=== PATIENT | female | born 1965 | race Two or more races ===

== ENCOUNTER 2023-01-12 08:49 | Emergency (ER) | payer OTHER ==
[~2023-01-12] VITALS: Ht 162.6 cm; Wt 89.4 kg
[2023-01-12] MEDS ORDERED: HYDRODIURIL12.5 MG PO (09:03)
[2023-01-12] MEDS ORDERED: AVALIDE 300-121 EACH PO (09:03)
[2023-01-12] MEDS ORDERED: NORFLEX100MG PO (09:04)
[2023-01-12] MEDS ORDERED: TORADOL60 MG IM (09:05)
[2023-01-12] MEDS ORDERED: MEDROLPACK PO (13:05)
[2023-01-12] MEDS ORDERED: CELEBREX200MG PO (13:05)
[2023-01-12] MEDS ORDERED: DIAZEPAM2 MG PO (13:05)
[2023-01-12] MEDS ORDERED: METAXALONE800 MG PO (13:05)
== END 2023-01-12 13:12 | disposition home or self-care (01) ==
LOC: ER 08:49
DX: M62.838 Other muscle spasm (principal); I10 Essential (primary) hypertension; Z88.0 Allergy status to penicillin

== ENCOUNTER 2025-08-31 22:43 | Inpatient (IN) | payer OTHER ==
[~2025-08-31] VITALS: Ht 162.6 cm; Wt 88.5 kg
[~2025-08-31 22:43] MED LIST: AVALIDE 300-121 EACH PO; CELEBREX200MG PO; DIAZEPAM2 MG PO; HYDRODIURIL12.5 MG PO; MEDROLPACK PO; METAXALONE800 MG PO; NORFLEX100MG PO; TORADOL60 MG IM
--- NOTE | 2025-08-31 23:16 | NUR ---
PACIENTE ALERTA Y ORIENTADA X3 EN COMPANIA DE FAMILIAR QUIEN ANDRE A PACIENTE POR DOLOR DE PECHO Y PALPITACIONES EL CUAL COMENZO DESDE HACE DOS MOSER. PACIENTE NO DISTINGUE SI ES ARACELI EL PESO DE UN BLOQUE O PUNSADAS SI ARACELI (PALPITACIONES). SE REALIZA EKG Y SE PRESENTA DR. DAVIS.
--- NOTE | 2025-09-01 00:01 | NUR ---
SE ORIENTA PACIENTE SOBRE TX MEDICO ORDENADO POR QUIEN REFIERE ENTENDER. SE COLECTAN MUESTRAS DE LABORATORIO Y SE REALIZA CANALIZACION BAJO MEDIDAS ASEPTICAS. SE ENTREGA U/A A PACIENTE.
[2025-09-01 00:06] LABS: BASO % 0.3 % (0.1-1.2); EOS # 0.04 (0.04-0.54); EOS % 0.3 % (0.7-7.0); LYMPH # 2.50 (1.18-3.74); LYMPH % 17.5 % (19.3-53.1); MEAN PLATELET VOLUME 9.90 fl (9.4-12.4); MONO # 0.79 (0.24-0.82); MONO % 5.5 % (4.7-12.5); NEUT # 10.91 (1.56-6.13); NEUT % 76.2 % (34.0-71.1); RED CELL DISTRIBUTION WIDTH 12.4 % (11.6-14.4)
[2025-09-01 00:31] LABS: ALT/SGPT 24.0 U/L (12-78); AST/SGOT 16.0 U/L (15-37); BILIRUBIN TOTAL 0.81 mg/dL (0.3-1.2); BUN CREA RATIO 19.0 (7.0-25.0); CREATININE SERUM 0.8 mg/dL (0.55-1.02); GFR 72.92; GLOBULINA 4.2 G/DL (2.4-3.5); GLUCOSE FASTING 111.0 mg/dL (65-100); OSMOLALITY SERUM 281.0 MOSM/KG (275-295)
[2025-09-01] MEDS ORDERED: TICAGRELOR 90 MG TABLET PO STA (01:51)
[2025-09-01] MEDS ORDERED: NITROGLYCERIN 250 ML IV SCH (02:00)
[2025-09-01] MEDS ORDERED: ASPIRIN 325 MG TABLET PO STA (02:28)
[2025-09-01] MEDS ORDERED: NITROGLYCERIN IN 5 % DEXTROSE 50 MG/250 ML BOTTLE IV ONE (02:32)
[2025-09-01 02:37] LABS: URINE APPEARANCE Clear; URINE BILIRRUBIN Negative (NEGATIVE); URINE BLOOD Negative; URINE COLOR Yellow; URINE GLUCOSE Negative (NEGATIVE); URINE KETONE Negative (NEGATIVE); URINE LEUKOCYTE Negative; URINE NITRATE Negative; URINE PROTEIN Negative (NEGATIVE); URINE UROBILINOGEN 0.2 E.U./dl
[2025-09-01 02:40] LABS: URINE BACTERIA 11.9 uL (0.0-1933)
--- NOTE | 2025-09-01 02:50 | NUR ---
SE RECIBE PTE ALERTA Y ORIENTADA X3 AL AREA DE CRITICO, SE UBICA EN CAMA #3, SE CONECTA A MONITOR CARDIACO Y OXIMETRIA DE PULSO CONTINUA PRESENTANDO SIGNOS VITALES YA REPORTADOS EN SISTEMA. SE OBSERVA CANALIZACION PREVIA EN BRAZO REJI CON ANGIO #18, PATENTE, KHURRAM DE EDEMA Y ERITEMA, SE ADMINISTRAN MEDICAMENTOS DANIEL ORDEN MEDICA. PTE TOLERA. PENDIENTE MUESTRAS DE LABORATORIO PROGRAMADAS PARA LAS [id number]. SE MANTIENE BAJO OBSERVACION.
[2025-09-01 03:29] LABS: URINE CAST 0.00 uL (0.0-1.40); URINE EPITHELIAL CELLS 0.3 uL (0.0-38.8); URINE RBC 0.8 uL (0.0-20.8); URINE WBC 0.6 uL (0.0-23.2)
[2025-09-01 03:56] LABS: INR 1.03
--- NOTE | 2025-09-01 07:54 | NUR ---
SE RECIBE PTE FEMENINA DE 59 YRD ALERTA CONCIENTE Y TRANQUILA EN CAMA EN LA UNIDAD DE ICU-2, CONCETADA A MONITOR CARDIACO Y OXIMENTRIA, SE LE CALEB S.V Y SE DOCUEMTA . SE OBSERVA PTE CON TRIDIL A 1 ML HRS IVF PANTENTE . PTE YA EVALUADA POR EL VERITO HOUSE . SE MANTIENE BAJO OBSERVACIO POR CAMBIOS EN FORDE CONDICION.
[2025-09-01] MEDS ORDERED: ONDANSETRON HCL 2 MG/ML VIAL IV SCH (07:58)
[2025-09-01] MEDS ORDERED: ACETAMINOPHEN 500 MG GEL..CAP PO SCH (07:58)
[2025-09-01] MEDS ORDERED: ATORVASTATIN CALCIUM 20 MG TABLET PO SCH (07:59)
[2025-09-01] MEDS ORDERED: SODIUM CHLORIDE 0.45 % 1,000 ML IV SCH (08:00)
[2025-09-01] MEDS ORDERED: CETIRIZINE HCL 5MG/5ML BLIST.PACK PO ONE (08:17)
[2025-09-01] MEDS ORDERED: CANDESARTAN CILEXETIL 32 MG TABLET PO SCH (09:00)
[2025-09-01] MEDS ORDERED: METHYLPREDNISOLONE SOD SUCC 40 MG VIAL IV SCH (09:00)
[2025-09-01] MEDS ORDERED: METOPROLOL SUCCINATE 50 MG TAB.SR.24H PO SCH (09:00)
[2025-09-01] MEDS ORDERED: ASPIRIN 81 MG TABLET.EC PO SCH (09:00)
[2025-09-01] MEDS ORDERED: ESCITALOPRAM OXALATE 20 MG TABLET PO SCH (09:00)
[2025-09-01] MEDS ORDERED: CANDESARTAN CILEXETIL 16 MG TABLET PO SCH (09:00)
[2025-09-01] MEDS ORDERED: PANTOPRAZOLE SODIUM 40 MG/VIAL VIAL IV PUSH SCH (09:00)
[2025-09-01] MEDS ORDERED: CLOPIDOGREL BISULFATE 75 MG TABLET PO SCH (09:00)
[2025-09-01] MEDS ORDERED: ENOXAPARIN SODIUM 40 MG/0.4 ML SYRINGE SUBCUTANEO SCH (09:00)
[2025-09-01 09:48] VITALS: BP 124/67
[2025-09-01 10:30] VITALS: BP 121/58; O2SAT 100
[2025-09-01 15:53] VITALS: BP 107/78; O2SAT 99
[2025-09-01] MEDS ORDERED: CLONAZEPAM 1 MG TABLET PO SCH (17:00)
[2025-09-01] MEDS ORDERED: DOCUSATE SODIUM 100MG CAP PO SCH (21:00)
[2025-09-01] MEDS ORDERED: GABAPENTIN 300 MG CAPSULE PO SCH (21:00)
[2025-09-01] MEDS ORDERED: DIPHENHYDRAMINE HCL 25 MG CAPSULE PO SCH (21:00)
[2025-09-01 21:29] VITALS: O2SAT 98
[2025-09-02 01:20] VITALS: O2SAT 94
[2025-09-02 01:33] VITALS: BP 110/69; O2SAT 99
[2025-09-02 05:32] VITALS: O2SAT 97
[2025-09-02 06:27] LABS: BASO % 0.0 % (0.1-1.2); EOS # 0.00 (0.04-0.54); EOS % 0.0 % (0.7-7.0); LYMPH # 1.35 (1.18-3.74); LYMPH % 14.5 % (19.3-53.1); MEAN PLATELET VOLUME 10.10 fl (9.4-12.4); MONO # 0.16 (0.24-0.82); MONO % 1.7 % (4.7-12.5); NEUT # 7.80 (1.56-6.13); NEUT % 83.5 % (34.0-71.1); RED CELL DISTRIBUTION WIDTH 12.3 % (11.6-14.4)
[2025-09-02 06:48] LABS: INR 1.09
[2025-09-02 07:03] LABS: ALT/SGPT 22.0 U/L (12-78); AST/SGOT 12.0 U/L (15-37); BILIRUBIN TOTAL 1.07 mg/dL (0.3-1.2); BILIRUBIN,CONJUGATED 0.2 mg/dL (0.0-0.2); BUN CREA RATIO 16.0 (7.0-25.0); CHOL HDL RATIO 6.1 (0-5.0); CREATININE SERUM 0.62 mg/dL (0.55-1.02); GFR 97.86; GLOBULINA 4.0 G/DL (2.4-3.5); GLUCOSE FASTING 117.0 mg/dL (65-100); HDL 41.0 mg/dl (40-60); LDL 188.0 mg/dl (0-130); OSMOLALITY SERUM 283.0 MOSM/KG (275-295); T4 FREE 0.9 NG/ML (0.76-1.46); TSH 0.583 uIU/mL (0.358-3.74); VLDL 20.0 (0-39)
[2025-09-02 07:07] LABS: ERYTHROCYTE SEDIMENTATION RATE 13 mm/hr (0-30)
[2025-09-02 09:24] VITALS: BP 140/72; O2SAT 100
[2025-09-02 09:35] VITALS: O2SAT 98
[2025-09-02] MEDS ORDERED: DIPHENHYDRAMINE25 M3 PO (10:45)
[2025-09-02] MEDS ORDERED: TOPROL XL50 M1 PO (10:46)
[2025-09-02] MEDS ORDERED: LIPITOR20 MG PO (10:46)
[2025-09-02] MEDS ORDERED: CLOPIDOGREL BIS75 MG PO (10:46)
[2025-09-02] MEDS ORDERED: AVALIDE 300-121 EACH PO (10:46)
[2025-09-02] MEDS ORDERED: GABAPENTIN300 MG PO (10:47)
[2025-09-02] MEDS ORDERED: PAIN RELIEVER500 M2 PO (10:47)
[2025-09-02] MEDS ORDERED: ST. JOSEPH ASPI81 M2 PO (10:47)
== END 2025-09-02 10:59 | disposition home or self-care (01) | DRG 282 ==
LOC: ER 22:43 → MEDI 09-01 08:00 → SEC-K 09-01 08:00 → MEDI 09-01 13:17
PROVIDERS: General Practice; Preventive Medicine Public Health & General Preventive Medicine; ADMIT Internal Medicine; ATTEND Internal Medicine
PROC: 4A12X4Z Monitoring of Cardiac Electrical Activity, External Approach (ICD-10-PCS; principal; 2025-09-01)
PROC: B246ZZZ Ultrasonography of Right and Left Heart (ICD-10-PCS; 2025-09-01)
DX: I21.A1 Myocardial infarction type 2 (principal); T78.40XA Allergy, unspecified, initial encounter; R19.7 Diarrhea, unspecified; R53.81 Other malaise; M62.838 Other muscle spasm

== ENCOUNTER 2025-09-08 22:29 | Emergency (ER) | payer OTHER ==
[~2025-09-08] VITALS: Ht 165.1 cm; Wt 86.2 kg
[~2025-09-08 22:29] MED LIST changes: +CLOPIDOGREL BIS75 MG PO; +DIPHENHYDRAMINE25 M3 PO; +GABAPENTIN300 MG PO; +LIPITOR20 MG PO; +PAIN RELIEVER500 M2 PO; +ST. JOSEPH ASPI81 M2 PO; +TOPROL XL50 M1 PO
[2025-09-09] MEDS ORDERED: ORPHENADRINE CITRATE 30 MG/ML AMPUL IM STA (00:40)
[2025-09-09] MEDS ORDERED: TRIAMCINOLONE ACETONIDE 40 MG/ML VIAL IM STA (00:40)
[2025-09-09] MEDS ORDERED: DOLOGESIC-DF 51 EACH PO (00:48)
[2025-09-09] MEDS ORDERED: ORPHENADRINE CITRATE 30 MG/ML AMPUL ONE (00:56)
[2025-09-09] MEDS ORDERED: TRIAMCINOLONE ACETONIDE 40 MG/ML VIAL ONE (00:57)
[2025-09-09 01:09] VITALS: BP 120/70; O2SAT 98
== END 2025-09-09 01:12 ==
LOC: ER 22:29
DX: M62.838 Other muscle spasm (principal); Z88.0 Allergy status to penicillin; I10 Essential (primary) hypertension

== ENCOUNTER 2025-09-19 16:23 | Emergency (ER) | payer OTHER ==
[~2025-09-19] VITALS: Ht 162.6 cm; Wt 88.9 kg
[~2025-09-19 16:23] MED LIST changes: +DOLOGESIC-DF 51 EACH PO
[2025-09-19] MEDS ORDERED: ORPHENADRINE CITRATE 30 MG/ML AMPUL IM ONE (18:45)
[2025-09-19] MEDS ORDERED: DEXAMETHASONE SODIUM PHOSPHATE 4 MG/ML VIAL IM ONE (18:45)
[2025-09-19] MEDS ORDERED: ACETAMINOPHEN 500 MG GEL..CAP PO ONE (18:45)
[2025-09-19] MEDS ORDERED: MEDROLPACK PO (22:10)
[2025-09-19] MEDS ORDERED: NORFLEX100MG PO (22:10)
[2025-09-19] MEDS ORDERED: IBU600 MG PO (22:10)
== END 2025-09-19 22:48 | disposition home or self-care (01) ==
LOC: ER 16:24
DX: M94.0 Chondrocostal junction syndrome [Tietze] (principal); I10 Essential (primary) hypertension; Z88.0 Allergy status to penicillin